=== PATIENT | female | born 1955 ===

== ENCOUNTER → 2018-09-25 07:31 | Outpatient (CLI) | payer OTHER, SELFPAY ==
[2018-09-25 09:08] LABS: Add Manual Diff / Slide Review NO; Basophils Absolute Auto 100 /uL (0-100); Basophils Percent Auto 0.9 % (0-2); Eosinophils Absolute Auto 300 /uL (0-450); Eosinophils Percent Auto 4.5 % (2-4); Hemoglobin 11.8 g/dL (12.0-16.0); Lymphocytes Absolute Auto 1900 /uL (1100-4500); Lymphocytes Percent Auto 29.1 % (25-40); Mean Corpuscular HGB Conc 33.7 % (30-36); Mean Corpuscular Hemoglobin 27.5 PG (26-34); Mean Corpuscular Volume 81.7 fL (80-100); Monocytes Absolute Auto 400 /uL (0-900); Monocytes Percent Auto 6.4 % (3-14); Neutrophils Absolute Auto 3900 /uL (1500-7000); Neutrophils Percent Auto 59.1 % (50-75); Platelet Count 255 X10^3/uL (150-400); Red Blood Cell Count 4.29 X10^6/uL (4.0-5.2); Red Cell Distribution Width 13.9 % (11.6-14.8); White Blood Cell Count 6.6 X10^3/uL (4.5-11.0)
[2018-09-25 09:28] LABS: Alanine Aminotransferase 13 IU/L (9-52); Albumin Globulin Ratio 1.2 (1.0-2.8); Alkaline Phosphatase 90 U/L (38-126); Aspartate Aminotransferase 24 IU/L (14-36); BUN Creatinine Ratio 13.8 (6-22); Blood Urea Nitrogen 11 mg/dL (7-17); Calcium 9.3 mg/dL (8.4-10.2); Carbon Dioxide 26 mmol/L (22-32); Chloride 106 mmol/L (98-107); Cholesterol 130 mg/dL (140-199); Estimated Glomerular Filt Rate > 60.0 mL/min (>60); Globulin 3.3 g/dL (1.7-4.1); Glucose 98 mg/dL (80-110); HDL Cholesterol 53 mg/dL (40-60); HEMOLYSIS < 15 (0-50); LDL Cholesterol Calculated 46 mg/dL (<100); Potassium 3.9 mmol/L (3.4-5.1); Sodium 140 mmol/L (137-145); Total Protein 7.3 g/dL (6.3-8.2); Triglycerides 157 mg/dL (35-150)
[2018-09-25 10:04] LABS: Thyroid Stimulating Hormone 1.21 uIU/mL (0.47-4.68)
== END ==
PROVIDERS: Visit Provider Hospitalist
DX: E03.9 Hypothyroidism, unspecified (principal)
CPT/HCPCS: 36415; 80053; 80061; 83036; 84443; 85025

== ENCOUNTER → 2018-12-12 12:28 | Outpatient (CLI) | payer MEDICAID, SELFPAY ==
--- NOTE | 2018-12-12 12:31 | DI.RAD.S_ITS ---
PROCEDURE: XR KNEE RT 3V INDICATIONS: R knee pain TECHNIQUE: 3 views of the knee were acquired. COMPARISON: None. FINDINGS: Bones: No fractures or dislocations. No suspicious bony lesions. Scattered degenerative subchondral sclerosis and spurring. . Mild narrowing of the patellofemoral joint space. Soft tissues: Small joint effusion. Prepatellar soft tissue swelling IMPRESSION: Mild patellofemoral joint degeneration. Small joint effusion. Dictated by: Vladimir Alexander M.D. on 12/12/2018 at 13:51 Approved by: Vladimir Alexander M.D. on 12/12/2018 at 13:52
== END ==
PROVIDERS: PCP Hospitalist; Visit Provider Hospitalist
DX: M25.561 Pain in right knee (principal)
CPT/HCPCS: 73562

== ENCOUNTER 2019-09-14 14:57 | Emergency (ER) | payer OTHER, MEDICAID, SELFPAY ==
[2019-09-14] VITALS (8 sets, daily range): BP systolic 172–224; BP diastolic 84–96; PULSE 60–71; RESP 13–23; TEMP 36.8; O2SAT 99–100; BMI 26.4
--- NOTE | 2019-09-14 15:25 | DI.RAD.S_ITS ---
PROCEDURE: XR CHEST 1V INDICATIONS: chest pain TECHNIQUE: One view of the chest was acquired. COMPARISON: None. FINDINGS: Surgical changes and devices: None. Lungs and pleura: Lungs are clear. No pleural effusions or pneumothorax. Mediastinum: Mediastinal contours appear normal. Heart size is normal. Bones and chest wall: No suspicious bony lesions. Overlying soft tissues appear unremarkable. IMPRESSION: Normal for age, source of current chest pain symptoms is not seen. Dictated by: Naren Lwe M.D. on 09/14/2019 at 16:18 Approved by: Naren Lew M.D. on 09/14/2019 at 16:18
[2019-09-14 16:00] LABS: INR 0.9 (0.9-1.3); Prothrombin Time 10.5 SECONDS (10.1-12.7)
[2019-09-14 16:01] LABS: Add Manual Diff / Slide Review NO; Basophils Absolute Auto 100 /uL (0-100); Basophils Percent Auto 0.9 % (0-2); Eosinophils Absolute Auto 300 /uL (0-450); Eosinophils Percent Auto 3.8 % (2-4); Hematocrit 35.3 % (36-46); Hemoglobin 12.2 g/dL (12.0-16.0); Lymphocytes Absolute Auto 2000 /uL (1100-4500); Lymphocytes Percent Auto 27.4 % (25-40); Mean Corpuscular HGB Conc 34.4 % (30-36); Mean Corpuscular Hemoglobin 28.1 PG (26-34); Mean Corpuscular Volume 81.6 fL (80-100); Monocytes Absolute Auto 500 /uL (0-900); Monocytes Percent Auto 7.4 % (3-14); Neutrophils Absolute Auto 4500 /uL (1500-7000); Neutrophils Percent Auto 60.5 % (50-75); Platelet Count 260 X10^3/uL (150-400); Red Blood Cell Count 4.33 X10^6/uL (4.0-5.2); Red Cell Distribution Width 13.1 % (11.6-14.8); White Blood Cell Count 7.4 X10^3/uL (4.5-11.0)
[2019-09-14 16:03] LABS: PTT Partial Thromboplastin Tim 33 SECONDS (26.4-36.2)
[2019-09-14 16:08] LABS: Alanine Aminotransferase 16 IU/L (<35); Albumin 4.1 g/dL (3.5-5.0); Albumin Globulin Ratio 1.2 (1.0-2.8); Alkaline Phosphatase 74 U/L (38-126); Aspartate Aminotransferase 28 IU/L (14-36); BUN Creatinine Ratio 16.9 (6-22); Bilirubin Total 1.2 mg/dL (0.2-1.3); Blood Urea Nitrogen 14 mg/dL (7-17); Calcium 9.5 mg/dL (8.4-10.2); Carbon Dioxide 24 mmol/L (22-32); Chloride 107 mmol/L (98-107); Creatine Kinase 45 U/L (30-135); Estimated Glomerular Filt Rate > 60.0 mL/min (>60); Globulin 3.3 g/dL (1.7-4.1); Glucose 137 mg/dL (80-110); HEMOLYSIS < 15 (0-50); Lipase 154 U/L (23-300); Sodium 140 mmol/L (137-145); Total Protein 7.4 g/dL (6.3-8.2)
[2019-09-14 16:20] LABS: NT-proBNP (BNP-Adult 18+) 228 pg/mL (<125); Troponin I < 0.012 ng/mL (0.01-0.034)
--- NOTE | 2019-09-14 17:02 | ED.GENADULT ---
HPI - General Adult <MICHOACANO Allen-BC - Last Filed: 09/14/19 21:18> General Chief complaint: Hypertension Stated complaint: High Blood Pressure Time Seen by Provider: 09/14/19 16:29 Source: patient Mode of arrival: Family Vehicle Limitations: no limitations History of Present Illness HPI narrative: The patient is a 63-year-old female nonsmoker with history of hypertension who presents with a chief complaint of hypertension. She states her blood pressures have been in the 200s over 90s at home. Yesterday she took an extra dose of candesartan and atenolol. She denies any chest pain, shortness of breath. She does complain of chronic neck pain that has been going on for over a year. She states that she was told to come to the emergency department if her diastolic it is 100, so since she was in the 90s she came to the emergency department. She is accompanied by her daughter. She denies any fevers nausea vomiting or diarrhea. She denies any abdominal pain. Related Data Previous Rx's Medication Instructions Recorded metformin 500 mg tablet 250 mg PO DAILY #90 tab 05/14/19 levothyroxine 100 mcg tablet See Rx Instructions .ROUTE 05/24/19 .COMPLEX #90 tablet atenolol 50 mg tablet See Rx Instructions .ROUTE 08/15/19 .COMPLEX #90 tablet atorvastatin 40 mg tablet See Rx Instructions .ROUTE 08/15/19 .COMPLEX #90 tablet candesartan 16 mg tablet 16 mg PO DAILY #90 tab 08/20/19 cyclobenzaprine 10 mg PO TID PRN #20 tab 09/14/19 Allergies Allergy/AdvReac Type Severity Reaction Status Date / Time No Known Drug Allergies Allergy Verified 09/14/19 15:23 Review of Systems <MICHOACANO Allen-BC - Last Filed: 09/14/19 21:18> Review of Systems Narrative: GENERAL: Denies chills, fatigue, malaise, fever, sweats. HEENT: Denies sinus pain, ear pain, sore throat, difficulty swallowing, dizziness. RESPIRATORY: Denies dyspnea, cough, wheezing, hemoptysis, sputum. CARDIOVASCULAR: See HPI GASTROINTESTINAL: Denies nausea, vomiting, abdominal pain, diarrhea, constipation, melena. : Denies dysuria, frequency, incontinence, hematuria, urinary retention. MUSCULOSKELETAL: denies weakness, joint pain, or bony pain SKIN: Denies rash, skin lesions, or other NEUROLOGIC: Denies weakness, headache, numbness, change in speech, confusion, seizures, incoordination. PSYCHIATRIC: No concerning psychosocial issues. 12 point review of systems is negative except for those stated above Patient History <SABRA Allen - Last Filed: 09/14/19 21:18> Medical History Borderline diabetes (Acute) Cervical somatic dysfunction (Acute) Chronic tension headaches (Acute) Chronic upper back pain (Acute) Cranial somatic dysfunction (Acute) Diabetes mellitus (Chronic ~2009) Hearing loss (Chronic ~2017) Hypercholesterolemia (Acute) Hypertension (Acute) Hypothyroidism (Acute) Osteoporosis (Chronic ~1984) Ruptured tympanic membrane (Resolved ~2018) Segmental and somatic dysfunction of abdomen and other regions (Acute) Segmental and somatic dysfunction of lumbar region (Acute) Segmental and somatic dysfunction of pelvic region (Acute) Segmental and somatic dysfunction of rib cage (Acute) Segmental and somatic dysfunction of sacral region (Acute) Segmental and somatic dysfunction of thoracic region (Acute) Snoring (Acute) Thyroid nodule (Chronic ~2005) Tinnitus (Chronic ~2017) Vitamin D deficiency (Acute) Social History Smoking Status: Never smoker Smoking Status: Never smoker alcohol intake frequency: 0-2 drinks per day Substance Use Type: does not use Exam <SABRA Allen - Last Filed: 09/14/19 21:18> Narrative Exam Narrative: GENERAL: This is a well-nourished, well-developed patient, in no acute distress HEAD: Atraumatic. Normocephalic. No temporal or scalp tenderness. EYES: Pupils equal round and reactive. Extraocular motions intact. No scleral icterus. No injection or drainage. ENT: Nose without bleeding, purulent drainage or septal hematoma. Throat without erythema, tonsillar hypertrophy or exudate. Uvula midline. Airway patent. NECK: Trachea midline. No JVD or lymphadenopathy. Supple, nontender, no meningeal signs. CARDIOVASCULAR: Regular rate and rhythm RESPIRATORY: Clear to auscultation. Breath sounds equal bilaterally. No wheezes, rales, or rhonchi. No cough. No increased respiratory effort. No accessory muscle use. GASTROINTESTINAL: Abdomen soft, non-tender, nondistended. No hepato-splenomegaly, or palpable masses. No guarding. EXTREMITIES: No clubbing, cyanosis, or edema. No joint tenderness, effusion, or edema noted. BACK: CT and L-spine are without deformity or crepitance. Pain to bilateral paraspinal muscles of the C-spine. No flank tenderness. NEURO: AOx3. SKIN: No rash or erythema visible skin Initial Vital Signs Initial Vital Signs: Vital Signs Temperature 98.2 F 09/14/19 15:17 Pulse Rate 70 09/14/19 15:17 Respiratory Rate 09/14/19 15:17 Blood Pressure 184/84 H 09/14/19 15:17 Pulse Oximetry 100 09/14/19 15:17 <Elias Perez MD - Last Filed: 09/16/19 15:18> Initial Vital Signs Initial Vital Signs: Vital Signs Temperature 98.2 F 09/14/19 15:17 Pulse Rate 70 09/14/19 15:17 Respiratory Rate 09/14/19 15:17 Blood Pressure 184/84 H 09/14/19 15:17 Pulse Oximetry 100 09/14/19 15:17 Course <MICHOACANO Allen- - Last Filed: 09/14/19 21:18> Orders Ordered: Discontinued Medications Cyclobenzaprine HCl (Flexeril) 10 mg PO NOW ONE Stop: 09/14/19 17:28 Last Admin: 09/14/19 18:08 Dose: 10 mg Documented by: SHAVON Hydralazine HCl (Apresoline) 5 mg IV NOW ONE Stop: 09/14/19 19:26 Last Admin: 09/14/19 19:33 Dose: 5 mg Documented by: MERON Vital Signs Vital signs: Vital Signs - 8 hr 09/14/19 15:17 09/14/19 16:57 09/14/19 18:30 Temperature 98.2 F Pulse Rate 70 60 62 Respiratory Rate 19 14 23 Blood Pressure 184/84 H Blood Pressure [Left Arm] 191/84 H 190/86 H Pulse Oximetry 100 100 100 09/14/19 19:12 09/14/19 19:33 09/14/19 20:00 Temperature Pulse Rate 60 71 71 Respiratory Rate 14 17 Blood Pressure 224/96 H Blood Pressure [Left Arm] 197/93 H 193/86 H Pulse Oximetry 99 99 09/14/19 20:40 09/14/19 21:05 Temperature Pulse Rate 71 70 Respiratory Rate 13 Blood Pressure 172/90 H Blood Pressure [Left Arm] 185/85 H Pulse Oximetry 100 <Elias Perez MD - Last Filed: 09/16/19 15:18> Orders Ordered: Discontinued Medications Cyclobenzaprine HCl (Flexeril) 10 mg PO NOW ONE Stop: 09/14/19 17:28 Last Admin: 09/14/19 18:08 Dose: 10 mg Documented by: SHAVON Hydralazine HCl (Apresoline) 5 mg IV NOW ONE Stop: 09/14/19 19:26 Last Admin: 09/14/19 19:33 Dose: 5 mg Documented by: MERON Vital Signs Vital signs: Vital Signs - 8 hr 09/14/19 15:17 09/14/19 16:57 09/14/19 18:30 Temperature 98.2 F Pulse Rate 70 60 62 Respiratory Rate 19 14 23 Blood Pressure 184/84 H Blood Pressure [Left Arm] 191/84 H 190/86 H Pulse Oximetry 100 100 100 09/14/19 19:12 09/14/19 19:33 09/14/19 20:00 Temperature Pulse Rate 60 71 71 Respiratory Rate 14 17 Blood Pressure 224/96 H Blood Pressure [Left Arm] 197/93 H 193/86 H Pulse Oximetry 99 99 09/14/19 20:40 09/14/19 21:05 Temperature Pulse Rate 71 70 Respiratory Rate 13 Blood Pressure 172/90 H Blood Pressure [Left Arm] 185/85 H Pulse Oximetry 100 Medical Decision Making <SABRA Allen - Last Filed: 09/14/19 21:18> Lab Data Lab results reviewed: Yes I reviewed the patient's lab results. Result diagrams: 09/14/19 15:41 09/14/19 15:41 Labs: Lab Results 09/14/19 09/14/19 09/14/19 Range/Units 15:41 15:41 15:41 WBC 7.4 (4.5-11.0) X10^3/uL RBC 4.33 (4.0-5.2) X10^6/uL Hgb 12.2 (12.0-16.0) g/dL Hct 35.3 L (36-46) % MCV 81.6 (80-100) fL MCH 28.1 (26-34) PG MCHC 34.4 (30-36) % RDW 13.1 (11.6-14.8) % Plt Count 260 (150-400) X10^3/uL Neut % (Auto) 60.5 (50-75) % Lymph % (Auto) 27.4 (25-40) % [place] % (Auto) 7.4 (3-14) % Eos % (Auto) 3.8 (2-4) % Baso % (Auto) 0.9 (0-2) % Neut # (Auto) 4500 (9029-7566) /uL Lymph # (Auto) 2000 (0981-4003) /uL [place] # (Auto) 500 (0-900) /uL Eos # (Auto) 300 (0-450) /uL Baso # (Auto) 100 (0-100) /uL PT 10.5 (10.1-12.7) SECONDS INR 0.9 (0.9-1.3) APTT 33 (26.4-36.2) SECONDS Sodium 140 (137-145) mmol/L Potassium 4.0 (3.4-5.1) mmol/L Chloride 107 (98-107) mmol/L Carbon Dioxide 24 (22-32) mmol/L BUN 14 (7-17) mg/dL Creatinine 0.83 (0.52-1.04) mg/dL Estimated GFR > 60.0 (>60) mL/min BUN/Creatinine Ratio 16.9 (6-22) Glucose 137 H (80-110) mg/dL Calcium 9.5 (8.4-10.2) mg/dL Magnesium 2.0 (1.6-2.3) mg/dL Total Bilirubin 1.2 (0.2-1.3) mg/dL AST 28 (14-36) IU/L ALT 16 (<35) IU/L Alkaline Phosphatase 74 (38-126) U/L Total Creatine Kinase 45 (30-135) U/L CK-MB (CK-2) TNP CK-MB (CK-2) Rel Index TNP Troponin I < 0.012 (0.01-0.034) ng/mL NT-Pro-B Natriuret Pep 228 H (<125) pg/mL Total Protein 7.4 (6.3-8.2) g/dL Albumin 4.1 (3.5-5.0) g/dL Globulin 3.3 (1.7-4.1) g/dL Albumin/Globulin Ratio 1.2 (1.0-2.8) Lipase 154 (23-300) U/L // Range/Units 15:41 WBC (4.5-11.0) X10^3/uL RBC (4.0-5.2) X10^6/uL Hgb (12.0-16.0) g/dL Hct (36-46) % MCV (80-100) fL MCH (26-34) PG MCHC (30-36) % RDW (11.6-14.8) % Plt Count (150-400) X10^3/uL Neut % (Auto) (50-75) % Lymph % (Auto) (25-40) % [place] % (Auto) (3-14) % Eos % (Auto) (2-4) % Baso % (Auto) (0-2) % Neut # (Auto) (4127-1556) /uL Lymph # (Auto) (0759-1900) /uL [place] # (Auto) (0-900) /uL Eos # (Auto) (0-450) /uL Baso # (Auto) (0-100) /uL PT (10.1-12.7) SECONDS INR (0.9-1.3) APTT (26.4-36.2) SECONDS Sodium (137-145) mmol/L Potassium (3.4-5.1) mmol/L Chloride (98-107) mmol/L Carbon Dioxide (22-32) mmol/L BUN (7-17) mg/dL Creatinine (0.52-1.04) mg/dL Estimated GFR (>60) mL/min BUN/Creatinine Ratio (6-22) Glucose (80-110) mg/dL Calcium (8.4-10.2) mg/dL Magnesium (1.6-2.3) mg/dL Total Bilirubin (0.2-1.3) mg/dL AST (14-36) IU/L ALT (<35) IU/L Alkaline Phosphatase (38-126) U/L Total Creatine Kinase (30-135) U/L CK-MB (CK-2) CK-MB (CK-2) Rel Index Troponin I (0.01-0.034) ng/mL NT-Pro-B Natriuret Pep Cancelled (<125) pg/mL Total Protein (6.3-8.2) g/dL Albumin (3.5-5.0) g/dL Globulin (1.7-4.1) g/dL Albumin/Globulin Ratio (1.0-2.8) Lipase (23-300) U/L Imaging Data C-spine CT: Radiologist's Impression: [facility] [address] [place] [id number] XRay Report Signed Patient: Xiao Chand [facility]#: [id number] : 4Acct:[id number] Age/Sex: 63 / FDate of Service: 09/14/19 Loc: ED Accession Number: [id number] Procedure: XR cervical spine 2V or 3V Ordering Provider: Merced Jerez [facility]- PROCEDURE: XR CERVICAL SPINE 2V OR 3V INDICATIONS: neck pain x 1 yr TECHNIQUE: 3 view(s) of the cervical spine were acquired. COMPARISON: None. FINDINGS: Bones: No fractures or dislocations to the C7 level. The lateral masses of C1 appear intact on the odontoid view. No suspicious bony lesions. Multilevel degenerative endplate sclerosis and spurring. Diffuse facet arthropathy. Soft tissues: No prevertebral soft tissue swelling. IMPRESSION: No fracture Diffuse cervical spondylosis, most pronounced at C4-C5 and C5-C6. Dictated by: Vladimir Alexander M.D. on 09/14/2019 at 17:52 Approved by: Vladimir Alexander M.D. on 09/14/2019 at 17:53 Chest x-ray: Radiologist's Impression: [address] [place] [id number] XRay Report Signed Patient: Xiao Chand [facility]#: [id number] : 4Acct:[id number] Age/Sex: 63 / FDate of Service: 09/14/19 Loc: ED Accession Number: [id number] Procedure: XR chest 1V Ordering Provider: Elias Perez MD PROCEDURE: XR CHEST 1V INDICATIONS: chest pain TECHNIQUE: One view of the chest was acquired. COMPARISON: None. FINDINGS: Surgical changes and devices: None. Lungs and pleura: Lungs are clear. No pleural effusions or pneumothorax. Mediastinum: Mediastinal contours appear normal. Heart size is normal. Bones and chest wall: No suspicious bony lesions. Overlying soft tissues appear unremarkable. IMPRESSION: Normal for age, source of current chest pain symptoms is not seen. Dictated by: Naren eLw M.D. on 09/14/2019 at 16:18 Approved by: Naren Lew M.D. on 09/14/2019 at 16:18 ECG Data Attestation: I personally reviewed and interpreted this ECG as follows: Interpretation: Sinus rhythm. Ventricular rate 67. P.r. interval 165. Viewed by Dr. Perez MDM Narrative Medical decision making narrative: The patient is a 63-year-old female who presents with a chief complaint of hypertension. Her BP is in the 190s over 90s. She denies any chest pain shortness of breath, does complain of neck pain that she has had ongoing for your which feels better with the above-stated therapies. I spoke with Dr. Perez regarding the patient as she is already on atenolol 50 mg, heart rate in the 60s, as well as candesartan regarding patient's blood pressure control. He is important to note that she does not have any chest pain or shortness of breath. Per Dr. Perez will treat with 5 mg IV hydralazine in the emergency department, not change outpatient medications at this point time. Discussed at length not taking her blood pressure several times a day which she did yesterday and, treating pain, follow-up with primary care provider as well strict return precautions the emergency department including chest pain, shortness of breath, concern of heart attack or stroke. Patient daughter have no questions or concerns upon discharge and state understanding of return precautions as well as follow-up care. <Elias Perez MD - Last Filed: 09/16/19 15:18> Lab Data Labs: Lab Results 09/14/19 09/14/19 09/14/19 Range/Units 15:41 15:41 15:41 WBC 7.4 (4.5-11.0) X10^3/uL RBC 4.33 (4.0-5.2) X10^6/uL Hgb 12.2 (12.0-16.0) g/dL Hct 35.3 L (36-46) % MCV 81.6 (80-100) fL MCH 28.1 (26-34) PG MCHC 34.4 (30-36) % RDW 13.1 (11.6-14.8) % Plt Count 260 (150-400) X10^3/uL Neut % (Auto) 60.5 (50-75) % Lymph % (Auto) 27.4 (25-40) % [place] % (Auto) 7.4 (3-14) % Eos % (Auto) 3.8 (2-4) % Baso % (Auto) 0.9 (0-2) % Neut # (Auto) 4500 (1494-2260) /uL Lymph # (Auto) 2000 (0873-6966) /uL [place] # (Auto) 500 (0-900) /uL Eos # (Auto) 300 (0-450) /uL Baso # (Auto) 100 (0-100) /uL PT 10.5 (10.1-12.7) SECONDS INR 0.9 (0.9-1.3) APTT 33 (26.4-36.2) SECONDS Sodium 140 (137-145) mmol/L Potassium 4.0 (3.4-5.1) mmol/L Chloride 107 (98-107) mmol/L Carbon Dioxide 24 (22-32) mmol/L BUN 14 (7-17) mg/dL Creatinine 0.83 (0.52-1.04) mg/dL Estimated GFR > 60.0 (>60) mL/min BUN/Creatinine Ratio 16.9 (6-22) Glucose 137 H (80-110) mg/dL Calcium 9.5 (8.4-10.2) mg/dL Magnesium 2.0 (1.6-2.3) mg/dL Total Bilirubin 1.2 (0.2-1.3) mg/dL AST 28 (14-36) IU/L ALT 16 (<35) IU/L Alkaline Phosphatase 74 (38-126) U/L Total Creatine Kinase 45 (30-135) U/L CK-MB (CK-2) TNP CK-MB (CK-2) Rel Index TNP Troponin I < 0.012 (0.01-0.034) ng/mL NT-Pro-B Natriuret Pep 228 H (<125) pg/mL Total Protein 7.4 (6.3-8.2) g/dL Albumin 4.1 (3.5-5.0) g/dL Globulin 3.3 (1.7-4.1) g/dL Albumin/Globulin Ratio 1.2 (1.0-2.8) Lipase 154 (23-300) U/L 09/14/19 Range/Units 15:41 WBC (4.5-11.0) X10^3/uL RBC (4.0-5.2) X10^6/uL Hgb (12.0-16.0) g/dL Hct (36-46) % MCV (80-100) fL MCH (26-34) PG MCHC (30-36) % RDW (11.6-14.8) % Plt Count (150-400) X10^3/uL Neut % (Auto) (50-75) % Lymph % (Auto) (25-40) % [place] % (Auto) (3-14) % Eos % (Auto) (2-4) % Baso % (Auto) (0-2) % Neut # (Auto) (5011-4160) /uL Lymph # (Auto) (2363-0112) /uL [place] # (Auto) (0-900) /uL Eos # (Auto) (0-450) /uL Baso # (Auto) (0-100) /uL PT (10.1-12.7) SECONDS INR (0.9-1.3) APTT (26.4-36.2) SECONDS Sodium (137-145) mmol/L Potassium (3.4-5.1) mmol/L Chloride (98-107) mmol/L Carbon Dioxide (22-32) mmol/L BUN (7-17) mg/dL Creatinine (0.52-1.04) mg/dL Estimated GFR (>60) mL/min BUN/Creatinine Ratio (6-22) Glucose (80-110) mg/dL Calcium (8.4-10.2) mg/dL Magnesium (1.6-2.3) mg/dL Total Bilirubin (0.2-1.3) mg/dL AST (14-36) IU/L ALT (<35) IU/L Alkaline Phosphatase (38-126) U/L Total Creatine Kinase (30-135) U/L CK-MB (CK-2) CK-MB (CK-2) Rel Index Troponin I (0.01-0.034) ng/mL NT-Pro-B Natriuret Pep Cancelled (<125) pg/mL Total Protein (6.3-8.2) g/dL Albumin (3.5-5.0) g/dL Globulin (1.7-4.1) g/dL Albumin/Globulin Ratio (1.0-2.8) Lipase (23-300) U/L Discharge Plan Departure Patient Disposition: Home Clinical Impression: Neck pain Hypertension Qualifiers: Hypertension type: unspecified Qualified Code(s): I10 - Essential (primary) hypertension Discharge Date/Time: 09/14/19 21:06 Instructions: DI for High Blood Pressure, Chronic Neck Pain, DI for Muscle Spasm Activity Restrictions/Additional Instructions: Thank you for trusting us with your care today. I sent in a prescription for a muscle relaxer for your neck pain to [facility]. Today we gave you a single dose of blood pressure medicine. I spoke with Dr. Perez, my supervising physician today and he does not think that we should change her home medications. Please follow-up with primary care provider. As I discussed, please do not repeatedly check your blood pressure at home. Please only take it if necessary. Repeatedly testing the blood pressure will only cause the blood pressure to increase. If you take it be sure that you are resting, calm. Please come back to the emergency department for any acute concerns such as chest pain, shortness of breath etcetera. Please follow-up with primary care provider in the next few days. Prescriptions: New cyclobenzaprine 10 mg tablet 10 mg PO TID PRN (Reason: muscle spasm) Qty: 20 RF: 0 No Action metformin 500 mg tablet 250 mg PO DAILY Qty: 90 RF: 0 levothyroxine 100 mcg tablet See Rx Instructions .ROUTE .COMPLEX Qty: 90 RF: 0 atorvastatin 40 mg tablet See Rx Instructions .ROUTE .COMPLEX Qty: 90 RF: 0 atenolol 50 mg tablet See Rx Instructions .ROUTE .COMPLEX Qty: 90 RF: 0 candesartan 16 mg tablet 16 mg PO DAILY Qty: 90 RF: 1 Referrals: Quinton Richey DO [Primary Care Provider] -
--- NOTE | 2019-09-14 17:27 | DI.RAD.S_ITS ---
PROCEDURE: XR CERVICAL SPINE 2V OR 3V INDICATIONS: neck pain x 1 yr TECHNIQUE: 3 view(s) of the cervical spine were acquired. COMPARISON: None. FINDINGS: Bones: No fractures or dislocations to the C7 level. The lateral masses of C1 appear intact on the odontoid view. No suspicious bony lesions. Multilevel degenerative endplate sclerosis and spurring. Diffuse facet arthropathy. Soft tissues: No prevertebral soft tissue swelling. IMPRESSION: No fracture Diffuse cervical spondylosis, most pronounced at C4-C5 and C5-C6. Dictated by: Vladimir Alexander M.D. on 09/14/2019 at 17:52 Approved by: Vladimir Alexander M.D. on 09/14/2019 at 17:53
[2019-09-14] MEDS: CYCLOBENZAPRINE 10 MG TABLET PO (18:08)
[2019-09-14] MEDS: HYDRALAZINE 20 MG/ML VIAL 5 MG IV (19:33)
== END 2019-09-14 21:06 | disposition home or self-care (01) ==
PROVIDERS: Emergency Medicine; Emergency Provider Nurse Practitioner Family; PCP Family Medicine
DX: I10 Essential (primary) hypertension (principal); M54.2 Cervicalgia; R07.9 Chest pain, unspecified
CPT/HCPCS: 36415; 71045; 72040; 80053; 82550; 83690; 83735; 83880; 84484; 85025; 85610; 85730; 93005; 96374; 99284; J0360

== ENCOUNTER → 2019-09-20 09:37 | Outpatient (CLI) | payer OTHER, MEDICAID, SELFPAY ==
[2019-09-20 12:09] LABS: Add Manual Diff / Slide Review NO; Basophils Absolute Auto 100 /uL (0-100); Basophils Percent Auto 0.9 % (0-2); Eosinophils Absolute Auto 400 /uL (0-450); Eosinophils Percent Auto 5.4 % (2-4); Hematocrit 36.7 % (36-46); Hemoglobin 12.5 g/dL (12.0-16.0); Lymphocytes Absolute Auto 2100 /uL (1100-4500); Lymphocytes Percent Auto 28.1 % (25-40); Mean Corpuscular Volume 82.2 fL (80-100); Monocytes Absolute Auto 500 /uL (0-900); Monocytes Percent Auto 6.2 % (3-14); Neutrophils Absolute Auto 4500 /uL (1500-7000); Neutrophils Percent Auto 59.4 % (50-75); Platelet Count 231 X10^3/uL (150-400); Red Blood Cell Count 4.46 X10^6/uL (4.0-5.2); Red Cell Distribution Width 13.1 % (11.6-14.8); White Blood Cell Count 7.6 X10^3/uL (4.5-11.0)
[2019-09-20 12:26] LABS: Hemoglobin A1C% w Est Avg Glu 6.3 % (4.0-6.0)
[2019-09-20 12:39] LABS: Alanine Aminotransferase 18 IU/L (<35); Albumin 4.2 g/dL (3.5-5.0); Albumin Globulin Ratio 1.3 (1.0-2.8); Alkaline Phosphatase 74 U/L (38-126); Aspartate Aminotransferase 33 IU/L (14-36); BUN Creatinine Ratio 15.2 (6-22); Bilirubin Total 1.5 mg/dL (0.2-1.3); Blood Urea Nitrogen 12 mg/dL (7-17); Calcium 9.5 mg/dL (8.4-10.2); Carbon Dioxide 25 mmol/L (22-32); Chloride 107 mmol/L (98-107); Cholesterol 127 mg/dL (140-199); Estimated Glomerular Filt Rate > 60.0 mL/min (>60); Globulin 3.2 g/dL (1.7-4.1); Glucose 97 mg/dL (80-110); HDL Cholesterol 53 mg/dL (40-60); HEMOLYSIS 33 (0-50); LDL Cholesterol Calculated 47 mg/dL (<100); Sodium 142 mmol/L (137-145); Total Protein 7.4 g/dL (6.3-8.2); Triglycerides 134 mg/dL (35-150)
[2019-09-20 12:53] LABS: Free T3, Triiodothyronine Free 2.93 pg/mL (2.77-5.27); Free T4, Direct Thyroxine 2.05 ng/dL (0.78-2.19)
[2019-09-20 13:07] LABS: Thyroid Stimulating Hormone 0.55 uIU/mL (0.47-4.68)
[2019-09-20 17:06] LABS: Vitamin D 25 Hydroxy (D3) 33.6 ng/mL (30.0-100.0)
== END ==
PROVIDERS: PCP Family Medicine; Referring Provider Family Medicine; Visit Provider Family Medicine
DX: Z12.39 Encounter for other screening for malignant neoplasm of breast (principal); E03.9 Hypothyroidism, unspecified; E04.1 Nontoxic single thyroid nodule; E11.9 Type 2 diabetes mellitus without complications; E55.9 Vitamin D deficiency, unspecified; E78.00 Pure hypercholesterolemia, unspecified; I10 Essential (primary) hypertension; M81.0 Age-related osteoporosis without current pathological fracture; R06.83 Snoring; R73.9 Hyperglycemia, unspecified; Z13.29 Encounter for screening for other suspected endocrine disorder
CPT/HCPCS: 36415; 80053; 80061; 82306; 83036; 84439; 84443; 84481; 85025

== ENCOUNTER → 2019-09-21 10:55 | Outpatient (CLI) | payer OTHER, MEDICAID, SELFPAY ==
[2019-09-24 07:14] LABS: Fecal Immunochemical Test Negative (Negative)
== END ==
PROVIDERS: PCP Family Medicine; Referring Provider Family Medicine; Visit Provider Family Medicine
DX: Z12.39 Encounter for other screening for malignant neoplasm of breast (principal); E03.9 Hypothyroidism, unspecified; E04.1 Nontoxic single thyroid nodule; E11.9 Type 2 diabetes mellitus without complications; E55.9 Vitamin D deficiency, unspecified; E78.00 Pure hypercholesterolemia, unspecified; I10 Essential (primary) hypertension; M81.0 Age-related osteoporosis without current pathological fracture; R06.83 Snoring
CPT/HCPCS: 82274

== ENCOUNTER → 2021-02-04 08:11 | Outpatient (CLI) | payer OTHER, MEDICAID, SELFPAY ==
[2021-02-04 08:45] LABS: Add Manual Diff / Slide Review NO; Basophils Absolute Auto 100 /uL (0-100); Basophils Percent Auto 1.1 % (0-2); Eosinophils Absolute Auto 500 /uL (0-450); Eosinophils Percent Auto 6.9 % (2-4); Hematocrit 35.7 % (36-46); Lymphocytes Absolute Auto 2200 /uL (1100-4500); Lymphocytes Percent Auto 32.3 % (25-40); Mean Corpuscular HGB Conc 33.7 % (30-36); Mean Corpuscular Hemoglobin 29.1 PG (26-34); Mean Corpuscular Volume 86.5 fL (80-100); Monocytes Absolute Auto 400 /uL (0-900); Monocytes Percent Auto 5.5 % (3-14); Neutrophils Absolute Auto 3700 /uL (1500-7000); Neutrophils Percent Auto 54.2 % (50-75); Platelet Count 249 X10^3/uL (150-400); Red Blood Cell Count 4.12 X10^6/uL (4.0-5.2); Red Cell Distribution Width 13.9 % (11.6-14.8); White Blood Cell Count 6.9 X10^3/uL (4.5-11.0)
[2021-02-04 08:56] LABS: Hemoglobin A1C% w Est Avg Glu 5.8 % (4.0-6.0)
[2021-02-04 09:13] LABS: Alanine Aminotransferase 16 IU/L (<35); Albumin 3.9 g/dL (3.5-5.0); Albumin Globulin Ratio 1.4 (1.0-2.8); Alkaline Phosphatase 68 U/L (38-126); Aspartate Aminotransferase 28 IU/L (14-36); BUN Creatinine Ratio 10.3 (6-22); Bilirubin Total 0.8 mg/dL (0.2-1.3); Blood Urea Nitrogen 10 mg/dL (7-17); Calcium 9.5 mg/dL (8.4-10.2); Carbon Dioxide 26 mmol/L (22-32); Chloride 108 mmol/L (98-107); Cholesterol 135 mg/dL (140-199); Estimated Glomerular Filt Rate 57.3 mL/min (>60); Globulin 2.7 g/dL (1.7-4.1); Glucose 101 mg/dL (80-110); HDL Cholesterol 63 mg/dL (40-60); HEMOLYSIS < 15 (0-50); LDL Cholesterol Calculated 49 mg/dL (<100); Potassium 4.1 mmol/L (3.4-5.1); Sodium 142 mmol/L (137-145); Total Protein 6.6 g/dL (6.3-8.2); Triglycerides 116 mg/dL (35-150)
[2021-02-04 09:16] LABS: Vitamin D 25 Hydroxy (D3) 45.3 ng/mL (30.0-100.0)
[2021-02-04 09:19] LABS: Free T3, Triiodothyronine Free 3.11 pg/mL (2.77-5.27); Free T4, Direct Thyroxine 1.91 ng/dL (0.78-2.19)
[2021-02-04 09:32] LABS: Thyroid Stimulating Hormone 0.915 uIU/mL (0.47-4.68)
== END ==
PROVIDERS: PCP Family Medicine; Referring Provider Family Medicine; Visit Provider Family Medicine
DX: E03.9 Hypothyroidism, unspecified (principal); E11.9 Type 2 diabetes mellitus without complications; E55.9 Vitamin D deficiency, unspecified; E78.00 Pure hypercholesterolemia, unspecified; I10 Essential (primary) hypertension; M81.0 Age-related osteoporosis without current pathological fracture
CPT/HCPCS: 36415; 80053; 80061; 82306; 83036; 84439; 84443; 84481; 85025

== ENCOUNTER → 2021-03-24 10:07 | Outpatient (CLI) | payer OTHER, MEDICAID, SELFPAY ==
[2021-03-24 12:05] LABS: Hemoglobin A1C% w Est Avg Glu 5.5 % (4.0-6.0)
== END ==
PROVIDERS: PCP Family Medicine; Referring Provider Family Medicine; Visit Provider Family Medicine
DX: E11.9 Type 2 diabetes mellitus without complications (principal)
CPT/HCPCS: 36415; 83036

== ENCOUNTER → 2021-10-27 08:04 | Outpatient (CLI) | payer OTHER, MEDICAID, SELFPAY ==
[2021-10-27 09:29] LABS: Add Manual Diff / Slide Review NO; Basophils Absolute Auto 100 /uL (0-100); Basophils Percent Auto 1.2 % (0-2); Eosinophils Absolute Auto 600 /uL (0-450); Eosinophils Percent Auto 9.2 % (2-4); Hemoglobin 12.1 g/dL (12.0-16.0); Lymphocytes Absolute Auto 2000 /uL (1100-4500); Lymphocytes Percent Auto 29.6 % (25-40); Mean Corpuscular HGB Conc 34.7 % (30-36); Mean Corpuscular Hemoglobin 29.7 PG (26-34); Mean Corpuscular Volume 85.6 fL (80-100); Monocytes Absolute Auto 400 /uL (0-900); Monocytes Percent Auto 6.6 % (3-14); Neutrophils Absolute Auto 3600 /uL (1500-7000); Neutrophils Percent Auto 53.4 % (50-75); Platelet Count 251 X10^3/uL (150-400); Red Blood Cell Count 4.09 X10^6/uL (4.0-5.2); White Blood Cell Count 6.8 X10^3/uL (4.5-11.0)
[2021-10-27 09:41] LABS: Hemoglobin A1C% w Est Avg Glu 6.2 % (4.0-6.0)
[2021-10-27 09:55] LABS: Alanine Aminotransferase 18 IU/L (<35); Albumin 3.9 g/dL (3.5-5.0); Albumin Globulin Ratio 1.3 (1.0-2.8); Alkaline Phosphatase 66 U/L (38-126); Aspartate Aminotransferase 29 IU/L (14-36); BUN Creatinine Ratio 12.9 (6-22); Blood Urea Nitrogen 12 mg/dL (7-17); Carbon Dioxide 28 mmol/L (22-32); Chloride 106 mmol/L (98-107); Estimated Glomerular Filt Rate > 60 mL/min (>60); Globulin 2.9 g/dL (1.7-4.1); Glucose 97 mg/dL (80-110); HEMOLYSIS < 15 (0-50); Potassium 4.1 mmol/L (3.4-5.1); Sodium 139 mmol/L (137-145); Total Protein 6.8 g/dL (6.3-8.2)
== END ==
PROVIDERS: PCP Family Medicine; Referring Provider Family Medicine; Visit Provider Family Medicine
DX: E03.9 Hypothyroidism, unspecified (principal); E11.9 Type 2 diabetes mellitus without complications; I10 Essential (primary) hypertension
CPT/HCPCS: 36415; 80053; 83036; 85025